=== PATIENT | male | born 1985 | race Caucasian/White ===

== ENCOUNTER 2019-11-10 10:28 | Day surgery (SDC) | payer OTHER ==
[2019-11-09 11:44] VITALS: BMI 25.9
[2019-11-10] MEDS ORDERED: Lidocaine 1% w/Epinephrine 1:100K 20 ML VIAL ONE (12:20)
[2019-11-10] MEDS ORDERED: HYDROmorphone 0.5 MG/0.5 ML SYRINGE ONE ×2 (12:27→13:17)
[2019-11-10] MEDS ORDERED: Lidocaine 2% Jelly 5 ML TUBE ONE (12:27)
[2019-11-10] MEDS ORDERED: Midazolam HCl 2 mg/2 ml Vial ONE (12:27)
[2019-11-10] MEDS ORDERED: Fentanyl 100 MCG/2 ML VIAL ONE ×2 (12:27→15:52)
[2019-11-10] MEDS ORDERED: Dexamethasone 20 MG/5 ML VIAL ONE (14:39)
[2019-11-10] MEDS ORDERED: PROPOFOL 200 MG/20 ML VIAL ONE (14:39)
[2019-11-10] MEDS ORDERED: Lidocaine 1% PF 5 ML VIAL ONE (14:39)
[2019-11-10] MEDS ORDERED: Succinylcholine Chloride 20 MG/ML 10 ml SYRINGE FS ONE (14:39)
[2019-11-10] MEDS ORDERED: Ondansetron PF 4 MG/2 ML Vial ONE (14:39)
--- NOTE | 2019-11-11 09:50 | OP ---
DATE OF PROCEDURE: 11/10/2019 PREOPERATIVE DIAGNOSES: 1. Right thyroid mass. 2. Personal history of radiation therapy. POSTOPERATIVE DIAGNOSIS: Right follicular lesion of thyroid. PROCEDURE PERFORMED: Right thyroid lobectomy with laryngeal nerve monitoring. PROCEDURE IN DETAIL: After consent was obtained, the patient was identified, brought to the operating room, and placed on the operating table in the supine position. General endotracheal anesthesia was obtained. Laryngeal nerve monitoring was documented to be placed well and functioning. We then proceeded with prepping and draping the patient. Natural skin crease was identified in the lower neck and incision was delineated with a marking pen. We then infiltrated 1% lidocaine and 1:100,000 epinephrine and prepped in the region in sterile fashion. An incision was made with a 15 blade, down it through the skin, subcutaneous tissues, and platysma. Subplatysmal flaps were elevated and a self-retaining retractor was placed. We then the strap muscles and isolated the right thyroid lobe from the surrounding strap muscles. We then delivered the thyroid lobe into the wound and retracted medially as the superior vessels were suture ligated as were the inferior vessels. We then ultimately found the middle thyroid vein and put hemoclips on that prior to division. We then further rotated the thyroid and identified the recurrent laryngeal nerve, which was dissected to its insertion. We then dissected the thyroid and transected the thyroid ligament and dissected the thyroid from the pretracheal along the pretracheal plane. The thyroid isthmus was then divided. The specimen was sent for histologic evaluation. It appeared benign on frozen section analysis. We then obtained hemostasis in the wound bed with bipolar and placed Avitene in the wound bed and then closed the wound in layers. No bleeding was appreciated. Valsalva failed to reveal any bleeding as well. The strap muscles were reapproximated as was platysma. The skin was closed with a running subcuticular. Sterile dressings were applied. The patient was awakened and taken to recovery room in stable condition prior to discharge home. Job ID: [id number]
== END 2019-11-10 17:20 | disposition home or self-care (01) ==
LOC: SDC 10:28
PROVIDERS: ATTEND Specialist
PROC: 0GTH0ZZ Resection of Right Thyroid Gland Lobe, Open Approach (ICD-10-PCS; principal; 2019-11-10)
DX: E04.1 Nontoxic single thyroid nodule (principal); G40.909 Epilepsy, unspecified, not intractable, without status epilepticus; Z85.841 Personal history of malignant neoplasm of brain; Z92.3 Personal history of irradiation; Z79.899 Other long term (current) drug therapy; Z98.890 Other specified postprocedural states
CPT/HCPCS: 88307; 88331; 88334; J1100; J1170; J2001; J2250; J2405; J2704; J3010